=== PATIENT | male | born 2000 | race Two or more races ===

== ENCOUNTER 2022-10-03 07:43 | Emergency (ER) | payer OTHER, SELFPAY ==
[2022-10-03 07:48] VITALS: BP 145/74; PULSE 89; RESP 16; TEMP 36.8; O2SAT 97; BMI 42.0
--- NOTE | 2022-10-03 09:05 | ED.URI ---
HPI - URI/Sore Throat General Chief Complaint: Upper Respiratory Symptoms Stated Complaint: COUGH BLOCKED EARS Time Seen by Provider: 10/03/22 08:16 Source: patient Mode of arrival: ambulatory Limitations: no limitations History of Present Illness HPI Narrative: 22yoM c PMHx of obesity who is presenting to the ER with URI complaints that started a few days ago worse today which include subjective fevers, chills, fatigue, malaise, nasal congestion/rhinorrhea, ear pain bilateral with purulent left ear drainage/odor with the intermittent productive cough with clear/yellow colored sputum. He denies any measured fevers, dizziness, headaches, neck pain/stiffness, sore throat, trouble swallowing or breathing, chest pain and shortness of breath, dyspnea on exertion, orthopnea, palpitations, paresthesias, nausea/vomiting/diarrhea constipation, black or bloody stools, lower extremity more calf tenderness, recent travel or sick contacts or any other symptoms complaints or concerns at this time. MD elicited complaint: fever, cough, rhinorrhea, nasal congestion and other (ear pain/decreased hearing ) Onset (ago): day(s) (Past few days worse today) Consistency: constant and progressively worsening Severity: mild Description of mucous: clear, watery and yellow Able to tolerate fluids by mouth: Yes Exacerbating factors: nothing Relieving factors: nothing Associated symptoms: fever, chills, myalgias, rhinorrhea, nasal congestion, cough and ear pain Treatments prior to arrival: none Related Data Previous Rx's Medication Instructions Recorded amoxicillin 875 mg-potassium 1 tab PO BID 7 days #14 tabs 10/03/22 clavulanate 125 mg tablet ciprofloxacin 0.3 %-dexamethasone 4 drp otic (ears) BID 7 days #7.5 10/03/22 0.1 % ear drops,suspension mL (Ciprodex) Allergies Allergy/AdvReac Type Severity Reaction Status Date / Time No Known Allergies Allergy Verified 10/03/22 07:52 Review of Systems Review of Systems: Constitutional : + subjective fevers/chills/fatigue/malaise, No Weight loss, No Night Sweats ENT/Mouth : +nasal congestion/rhinorrhea, + Ear Pain/decreased hearing and drainage from the left ear, No Hearing loss, No Sinus Pain, No Hoarseness, No sore throat, No Swallowing Difficulty Eyes: No Eye Pain, No Swelling, No Redness, No Foreign Body, No Discharge, No Vision Changes Cardiovascular : No Chest Pain, No SOB, No Dyspnea on Exertion, No Orthopnea, No Edema, No Palpitations Respiratory : + Cough, No Sputum, No Wheezing, No Smoke Exposure, No Dyspnea Gastrointestinal : No Nausea, No Vomiting, No Diarrhea, No Constipation, No abdominal Pain, No Hematochezia, No Melena Genitourinary : no irregular bleeding, No Dysuria, No Urinary Frequency, No Hematuria, No Urinary Incontinence, No Urgency, No Flank Pain, No Urinary Flow Changes, No Hesitancy Musculoskeletal : No joint pain, + Myalgias, No Joint Swelling Skin : No Skin Lesions, No rash Neuro : No Weakness, No Numbness, No Paresthesias, No Loss of Consciousness, No Dizziness, No Headache Psych : No Anxiety/Panic, No Depression, No SI/HI/AH/VH, No Social Issues, Heme/Lymph: No Bruising, No Bleeding,No Lymphadenopathy Endocrine : No Polyuria, No Polydipsia, No Temperature Intolerance Yes all other systems are reviewed and are negative [facility] Past Medical History Attestation statement: The following information was validated with the patient. Source: old records reviewed and nursing notes reviewed Social History Social History Advance Directives: No Advance Directives Information Provided: No Physical Exam Vital Signs: Vital Signs: Last Vital Signs Temp 98.1 F 10/03/22 09:45 Pulse 89 10/03/22 09:45 Resp 16 10/03/22 09:45 BP 151/80 H 10/03/22 09:45 Pulse Ox 99 10/03/22 09:45 O2 Del Method 10/03/22 09:45 BMI result Body Mass Index 42.0 vital signs have been reviewed as normal and appeared to be correct. Blood pressure 145/74. Heart rate normal. Respiration rate normal. Temperature normal. Oxygen saturation normal. Appearance: Alert. Oriented X3. No acute distress. Head: Normal external exam. Normocephalic. Atraumatic. Eyes: PERRLA. EOMI. Conjunctiva and sclera normal. Eyelids normal. ENT: EAC normal. Right tympanic membrane is completely blocked by cerumen. Right external ear canal WNL. Left tympanic membrane/external ear canal edematous with purulent odorous discharge that is yellow/white in color consistent with otitis externa/media. Unsure if the tympanic membrane is perforated unable to completely visualize. Pharynx normal. Uvula midline. Moist mucous membranes. No lesions/ulcerations or masses noted on the tongue. Normal voice. No trismus noted. No drooling noted. No muffled voice noted. Neck: Normal inspection. Neck supple. FROM. No adenopathy. Thyroid Normal. No tracheal deviation noted. No crepitus is noted. No meningeal signs. No neck mass noted. No signs of trauma noted. CVS: Normal heart rate and rhythm. Heart sound normal. Pulses normal throughout. No murmurs/rales/gallops. Respiratory: No respiratory distress. Painless inspiration. Breath sounds normal. No wheezes/rales/rhonchi noted. Chest nontender. No crepitus is noted. No accessory muscle usage noted or decreased air movement noted. No signs of trauma. Abdomen: Soft and nontender. Nondistended. No guarding. No rigidity. Bowel sounds normal in all 4 quadrants. No distention noted. No organomegaly noted. No visible injury noted. Back: No CVA tenderness. Full range of motion noted. Nontender. No signs of trauma. Patient neuro intact bilaterally and distally on all 4 extremities. Patient's reflexes intact bilaterally and distally on all 4 extremities. No rashes/lesion/induration/fluctuance or signs of infection noted. Skin: Skin warm and dry. Normal skin color. Normal skin turgor. No rashes/lesions/lacerations noted. Extremities: No lower extremity edema. No calf tenderness is noted. Extremities exhibit normal range of motion and nontender. Neuro: Oriented X 3. No motor deficit. No sensory deficit. Reflexes normal. Normal steady gait. No focal neuro deficits noted. CN's II-XII intact bilaterally? Vascular: + radial pulses. Normal cap refill. No cyanosis noted to upper extremity nails Course Course Course Narrative: 8:30am - 22yoM c PMHx of obesity who is presenting to the ER with URI complaints that started a few days ago worse today which include subjective fevers, chills, fatigue, malaise, nasal congestion/rhinorrhea, ear pain bilateral with purulent left ear drainage/odor with the intermittent productive cough with clear/yellow colored sputum. Plan: COVID/RSV/flu swab. Removed cerumen and re-evaluate. Reevaluation(s) Reevaluation #1: Patient negative for COVID/RSV/flu. Patient now status post cerumen removal. Patient tolerated procedure well. No complications. Tympanic membrane not perforated after irrigation. Left ear was left alone due to of external ear infection and possible otitis media therefore did not perform cerumen removal to this ear to prevent rupture of tympanic membrane. Patient was also noted to have high blood pressure 145/74 and 151/80. I explained to him if he is not having any cardiac related complaints which he denies at this time then he can monitor his blood pressure and till he is status a primary care provider and if he develops any cardiac related complaints such as dizziness, change in vision, chest pain or shortness of breath or any other complaints and he will need to return immediately otherwise at this time will DC home with antibiotics for a left ear infection instructions return if any new or worsening symptoms follow up with primary care provider. Patient understands agrees with this plan. Time: 10:22 Medical Decision Making Medical Decision Making Differential Diagnoses: differential diagnosis Differential Diagnosis: The differential diagnosis associated with the patient?s presentation includes: This patient presents with symptoms suspicious for likely viral upper respiratory infection/otitis media. Differential includes bacterial pneumonia, sinusitis, allergic rhinitis. Do not suspect underlying cardiopulmonary process. I considered, but think unlikely, dangerous causes of this patient?s symptoms to include ACS, CHF or COPD exacerbations, pneumonia, pneumothorax. Patient is nontoxic appearing and not in need of emergent medical intervention. Non-ED record review: Review of External (Non-ED) Record Additional Comments: When I attempt to review the patient's records in our system there are no prior records to review at this time. Tests considered but not performed: Tests Considered But Not Performed The following testing was considered but ultimately not selected after discussion with patient/family. Chest Xray due to Lungs CTA and vitals stable. Procedures Ear Wax Removal Right Ear: Cerumenolytic Used: other (Peroxide and lukewarm water) Results: Re-examined: cerumen removed completely TM Examination: TM(s) intact, normal appearance Ear Canal Exam: atraumatic Patient Tolerated Procedure: well and no complications Complications: no problems Technique: ear canal irrigated Discharge Plan Discharge Clinical Impression: Acute left otitis media, Acute upper respiratory infection, Cerumen impaction, Elevated blood pressure reading Patient Disposition: Home, Self-Care Instructions: How to Use Ear Drops (ED), Ear Infection (ED), Upper Respiratory Infection (ED) Additional Instructions: I gave you a few numbers below so you can follow up with primary care provider. Your blood pressure was also noted to be high at this time. We are not diagnosed you with high blood pressure I explained to you that you should right your blood pressure in a notebook at least 3 times a week in morning and then when you establish a primary care provider bring him the no put of your blood pressures that you have been recording at least 3 times a week in the mornings. If he develops any new or worsening symptoms you need to return immediately. Prescriptions: New amoxicillin-pot clavulanate 875-125 mg tablet 1 tab PO BID 7 Days Qty: 14 0RF ciprofloxacin-dexamethasone [Ciprodex] 0.3-0.1 % drops,suspension 4 drp otic (ears) BID 7 Days Qty: 7.5 0RF Referrals: [facility] [Provider Group] [facility] [Provider Group] [facility] [place] [facility] [place]] [facility] [place] [facility] [place] [facility] [place] [facility]]
[2022-10-03 09:45] VITALS: BP 151/80; PULSE 89; RESP 16; TEMP 36.7; O2SAT 99
[2022-10-03 10:10] LABS: Influenza A PCR NEGATIVE (Negative); Influenza B PCR NEGATIVE (Negative); Resp Syncy Virus RNA Qual PCR NEGATIVE (Negative); SARS COV2 PCR INHOUSE NEGATIVE (Negative)
--- NOTE | 2022-10-03 10:58 | PC.NURSE ---
PT AWAKE, ALERT AND ORIENTED X 3. EVALUATED BY PROVIDER AJAY SORIANO FLUSHED RIGHT EAR WHICH WAS FILLED WITH CERUMEN. PT NOTED TO HAVE EAR INFECTION IN LEFT EAR PER PROVIDER. PT AWARE AND AGREEABLE TO ED CARE PLAN.
== END 2022-10-03 11:03 | disposition home or self-care (01) ==
PROVIDERS: Physician Assistant Medical; Emergency Provider Emergency Medicine
DX: J06.9 Acute upper respiratory infection, unspecified (principal); H66.92 Otitis media, unspecified, left ear; H61.21 Impacted cerumen, right ear; R03.0 Elevated blood-pressure reading, without diagnosis of hypertension; Z20.822 Contact with and (suspected) exposure to COVID-19; E66.9 Obesity, unspecified; Z68.41 Body mass index [BMI] 40.0-44.9, adult
CPT/HCPCS: 0241U; 69209; 99283

== ENCOUNTER 2022-10-16 00:23 | Emergency (ER) | payer OTHER, SELFPAY ==
[2022-10-16 03:20] VITALS: BP 141/82; PULSE 94; RESP 18; TEMP 36.9; O2SAT 98; BMI 43.0
[2022-10-16 04:12] LABS: Influenza A PCR NEGATIVE (Negative); Influenza B PCR NEGATIVE (Negative); Resp Syncy Virus RNA Qual PCR NEGATIVE (Negative); SARS COV2 PCR INHOUSE NEGATIVE (Negative)
[2022-10-16 04:39] VITALS: BP 149/68; PULSE 92; RESP 16; TEMP 36.3; O2SAT 99
--- NOTE | 2022-10-16 09:14 | ED_ITS ---
HPI - Ear Problem General Chief complaint: Ear Problems Stated complaint: sinus/ear infection Time Seen by Provider: 10/16/22 07:32 Source: patient Mode of arrival: ambulatory Limitations: no limitations History of Present Illness HPI Narrative: Patient with 2 weeks of ear pain, placed on augmentin finished 10 days with no improvement. Complaint: ear pain Location: left ear Duration: constant Associated symptoms ear: other (jaw pain) Related Data Previous Rx's Medication Instructions Recorded amoxicillin 875 mg-potassium 1 tab PO BID 7 days #14 tabs 10/03/22 clavulanate 125 mg tablet ciprofloxacin 0.3 %-dexamethasone 4 drp otic (ears) BID 7 days #7.5 10/03/22 0.1 % ear drops,suspension mL (Ciprodex) ofloxacin 0.3 % ear drops 10 drp otic (ears) DAILY 7 days 10/03/22 #10 mL ciprofloxacin 0.3 %-dexamethasone 4 drp otic (ears) BID 10 days #7.5 10/16/22 0.1 % ear drops,suspension mL (Ciprodex) Allergies Allergy/AdvReac Type Severity Reaction Status Date / Time No Known Allergies Allergy Verified 10/03/22 07:52 Review of Systems Review of Systems: Yes all other systems are reviewed and are negative ENT: Reports otalgia and Reports other (jaw pain) Neurologic: Denies Sensory deficit (Neuro) [facility] Social History Social History Smoked in Last 30 Days: No Use of substances other than those prescribed or required for medical reasons: No Advance Directives: No Advance Directives Information Provided: No Physical Exam Vital Signs: Vital Signs: Last Vital Signs Temp 97.4 F 10/16/22 04:39 Pulse 92 10/16/22 04:39 Resp 16 10/16/22 04:39 BP 149/68 H 10/16/22 04:39 Pulse Ox 99 10/16/22 04:39 O2 Del Method 10/16/22 04:39 BMI result Body Mass Index 43.0 Const: General: healthy appearing Nutritional Appearance: obese Orientation/consciousness: oriented to person and patient oriented x3 Limitations: no limitations HEENT: Other: left ear with otitis external with swelling and drainage Head: Yes normal to inspection General nose exam: Normal external nose present Mouth: Normal oral and palatal mucosa present and oropharynx normal Throat: Yes posterior oropharynx normal Eyes: General: appearance normal, both eyes and all related structures Neck: Other: supple Neck: Yes normal visual inspection Chest: Chest palpation & inspection: normal inspection of the chest Resp: Auscultation: clear to auscultation bilaterally Cardio: Jugular venous distension: no JVD Rate: regular rate Rhythm: regular rhythm Heart sounds: S1 normal heart sound present and S2 normal heart sound present GI: Inspection: Yes normal to inspection Palpation (GI): Soft to palpation, nontender and No hepatosplenomegaly present Auscultation: normal bowel sounds : General: Yes no CVA tenderness Back/Spine/Pelvis: Back: no CVA tenderness Skin: General skin exam: no rashes or lesions noted Neuro: General: oriented to person and patient oriented x3 Cranial nerves: Yes CN's II-XII intact bilaterally Motor exam (neuro): 5/5 motor strength present throughout Sensory Exam: No Sensory deficit (Neuro) Extrem: General: Yes normal to inspection Psych: Appearance: grossly normal Course Reevaluation(s) Reevaluation #1: procedure: ear wick placed to left ear Time: 09:31 Medications Administered Discontinued Medications Generic Name Dose Route Start Last Admin Trade Name Freq PRN Reason Stop Dose Admin Neomycin/Polymyxin/Hydrocortisone 4 drop 10/16/22 09:31 10/16/22 09:45 Neomycin/Polymyxin/Hc Otic Munira Bottle EAR-LEFT 10/16/22 09:32 4 drop ONCE ONE Administration Medical Decision Making Lab Data Labs: Lab Results 10/16/22 Range/Units 03:29 Influenza Type A (PCR) NEGATIVE (Negative) Influenza Type B (PCR) NEGATIVE (Negative) RSV RNA Qual (PCR) NEGATIVE (Negative) SARS-CoV-2 RNA (RT-PCR) NEGATIVE (Negative) Discharge Plan Discharge Clinical Impression: Otitis externa Patient Disposition: Home, Self-Care Instructions: Otitis Externa (ED) Prescriptions: New ciprofloxacin-dexamethasone [Ciprodex] 0.3-0.1 % drops,suspension 4 drp otic (ears) BID 10 Days Qty: 7.5 0RF No Action amoxicillin-pot clavulanate 875-125 mg tablet 1 tab PO BID 7 Days Qty: 14 0RF ciprofloxacin-dexamethasone [Ciprodex] 0.3-0.1 % drops,suspension 4 drp otic (ears) BID 7 Days Qty: 7.5 0RF ofloxacin 0.3 % drops 10 drp otic (ears) DAILY 7 Days Qty: 10 0RF Referrals: Martinez Carrillo [Physician] - 3 days Stand Alone Forms: Work/School Release Interventions: ED Discharge Assessment Last Done: 10/16/22 09:42 Discharge Date/Time: 10/16/22 09:42
[2022-10-16] MEDS: NeoMYCIN/Polymyxin/HC Otic Sol BOTTLE 4 DROP EAR-LEFT (09:45)
== END 2022-10-16 09:42 | disposition home or self-care (01) ==
PROVIDERS: Emergency Provider Emergency Medicine
DX: H92.03 Otalgia, bilateral (principal); Z20.822 Contact with and (suspected) exposure to COVID-19; Z79.899 Other long term (current) drug therapy
CPT/HCPCS: 0241U; 99284